=== PATIENT | female | born 1960 | race Two or more races ===

== ENCOUNTER → 2024-05-02 | Outpatient (CLI) | payer OTHER, SELFPAY ==
--- NOTE | 2024-05-02 | XR_ITS ---
Examination: PA lateral chest 2 views TECHNIQUE: Upright PA lateral chest 2 views Exam date and time: May 02, 2024 1229 hours INDICATIONS: Coughing shortness of breath beginning 3 weeks ago FINDINGS: Mild prominence left ventricle No pneumonia or pulmonary edema Moderate osteopenia IMPRESSION: No pneumonia identified
[2024-05-02 13:55] LABS: D-Dimer 1090 ng/mL (<600)
[2024-05-02 14:01] LABS: Glucose Estimated Average 137 mg/dL (80-131); Hemoglobin A1C 6.4 % Hgb (4.8-6.0)
[2024-05-02 14:06] LABS: Alanine Aminotransferase 10 U/L (10-49); Albumin, Serum 4.9 gm/dL (3.4-4.8); Albumin/Globulin Ratio 2.2 (1.2-2.2); Alkaline Phosphatase 34 U/L (46-116); Anion Gap 8 (7-16); Aspartate Amino Transferase 15 U/L (0-34); BUN/Creatinine Ratio 26 Ratio (12-20); Bilirubin,Total 0.3 mg/dL (0.3-1.2); Blood Urea Nitrogen 18 mg/dL (9-23); Calcium 9.9 mg/dL (8.3-10.6); Calcium (Corrected) 9.9 mg/dL (8.5-10.1); Cardiac Risk Estimate 2.6 RATIO (3.7-5.6); Chloride 101 mMol/L (98-107); Cholesterol 218 mg/dL (132-200); Creatinine (Component) 0.7 mg/dL (0.6-1.3); Globulin 2.2 gm/dL (2.3-3.5); Glucose 201 mg/dL (74-106); HDL Cholesterol 83 mg/dL (40-60); LDL Cholesterol,Calculated 125 mg/dL (0-130); Osmolality,Calculated 285 (275-295); Sodium 139 mMol/L (136-145); Thyroid Stimulating Hormone 2.11 uIU/mL (0.55-4.78); Total Protein 7.1 gm/dL (5.7-8.2); Triglycerides 50 mg/dL (30-150); Troponin I < 0.002 ng/mL (0.0-0.045); eGFR > 60 See Note
[2024-05-02 14:12] LABS: B-Type Natriuretic Peptide 20 pg/mL (0-100)
[2024-05-02 14:16] LABS: Creatinine MALB Rnd Ur 42 mg/dL (30-125); Microalbumin, Random Urine < 3 mg/L (0-300)
== END | disposition home or self-care (01) ==
LOC: CDIM 12:00 → COPL 12:42
PROVIDERS: PCP Specialist; Referring Provider Specialist; Visit Provider Radiology Diagnostic Radiology
DX: R06.00 Dyspnea, unspecified (principal); E11.69 Type 2 diabetes mellitus with other specified complication; I10 Essential (primary) hypertension
CPT/HCPCS: 36415; 71046; 80053; 80061; 82043; 82570; 83036; 83880; 84443; 84484; 85379

== ENCOUNTER → 2024-05-11 | Outpatient (CLI) | payer OTHER, SELFPAY ==
--- NOTE | 2024-05-11 16:04 | XR_ITS ---
Examination: CTA chest with intravenous contrast 2-D reconstructions 3-D reconstructions, vascular Date and time of exam: May 11, 2024 1646 hours INDICATIONS: Shortness breath chest pain this week with elevated d-dimer on laboratory examination CTDI: vol (mGy) 10.2 DLP: (mGycm) 211 Technique: Multiple axial sections of the thorax have been obtained. 3 mm slice thickness, from below the hemidiaphragms to above the apices of the lungs. Mediastinal and lung density settings have been obtained. 2-D sagittal and coronal reconstructions. 3-D angiographic renderings, 3-D volume renderings, 3D post processing, vascular maximum intensity projections obtained. Contrast administered is 85 cc [id number]. Intravenous Low dose protocols were performed. One or more of the following dose reduction techniques were used; automated exposure control, adjustment of the mA and/or KV according to patient size, use of iterative reconstruction technique. Findings: AP dimension ascending thoracic aorta 3.5 cm No filling defects in the pulmonary arterial branches No mediastinal lymphadenopathy No pneumonia or pulmonary edema or pleural disease No visualized liver or splenic lesion No gallstones No pancreatic or adrenal mass No hydronephrosis IMPRESSION: Negative for thoracic aortic aneurysm and dissection Negative for pulmonary artery emboli No pulmonary edema pneumonia or pleural disease
== END | disposition home or self-care (01) ==
LOC: SCAT 15:39
PROVIDERS: PCP Specialist; Referring Provider Specialist; Visit Provider Specialist
DX: R79.1 Abnormal coagulation profile (principal); R06.02 Shortness of breath
CPT/HCPCS: 71275; A4649; Q9967

== ENCOUNTER → 2024-05-31 | Outpatient (CLI) | payer OTHER, SELFPAY ==
--- NOTE | 2024-05-31 13:57 | XR_ITS ---
Examination: Knee, right , 3 views Technique: Knee AP, lateral, oblique 3 views Date and time of exam: May 31, 2024 1415 hours INDICATIONS: Right knee pain beginning one month ago FINDINGS: Moderate osteopenia Mild tricompartment osteoarthritis. No fracture or dislocation. Small knee effusion IMPRESSION: Mild tricompartment osteoarthritis
--- NOTE | 2024-05-31 13:57 | XR_ITS ---
Exam: elbow bilateral, 6 views Technique: Elbow AP, oblique each knee total 6 views Exam date and time: May 31, 2024 1415 hours INDICATIONS: Bilateral elbow pain beginning 2 weeks ago. FINDINGS: No fracture or dislocation either elbow Minor ossification left medial humeral condyle No fracture or dislocation No elbow effusions IMPRESSION: No fracture or dislocation involving either elbow No significant arthritic change
--- NOTE | 2024-05-31 13:57 | XR_ITS ---
Examination: Bilateral knees, standing AP single view Technique: Standing AP bilateral knees, standing single view Exam date and time: May 31, 2024 1415 hours INDICATIONS: Bilateral knee pain worse involving the right knee beginning 2 months ago. FINDINGS: Moderate osteopenia. Mild narrowing medial joint spaces. No fracture or dislocation IMPRESSION: Mild narrowing medial joint space
== END | disposition home or self-care (01) ==
PROVIDERS: PCP Specialist; Referring Provider Specialist; Visit Provider Specialist
DX: M25.521 Pain in right elbow (principal); M25.522 Pain in left elbow; M17.11 Unilateral primary osteoarthritis, right knee; M25.862 Other specified joint disorders, left knee; M25.861 Other specified joint disorders, right knee
CPT/HCPCS: 73080; 73560; 73562; 73564; 73565

== ENCOUNTER → 2024-07-06 | Outpatient (CLI) | payer OTHER, SELFPAY ==
--- NOTE | 2024-07-06 10:39 | XR_ITS ---
Examination: Abdomen sonogram, complete Date and time of exam: July 06, 2024 1109 hours INDICATIONS: Nausea vomiting abdominal pain one week. Technique: Multiple real-time grayscale transabdominal sonographic images of the abdomen have been obtained. Findings: Normal gallbladder. Normal common bile duct 0.2 cm Pancreatic head 2.3 cm Aorta not enlarged Liver 12.5 cm fatty infiltration Normal hepatopedal portal venous flow Patent IVC Right kidney 11.4 cm cortex 1.5 cm Left kidney 11.3 cm cortex 1.6 cm Spleen 11.4 cm IMPRESSION: Normal gallbladder Fatty liver
--- NOTE | 2024-07-06 10:39 | XR_ITS ---
Examination: Pelvic ultrasound, transabdominal, complete Technique: Transabdominal ultrasound of the pelvis performed using grayscale imaging Date and time of exam: July 06, 2024 1123 hours INDICATIONS: Nausea vomiting pelvic pain beginning one week ago FINDINGS: Absent uterus, absent ovaries No free fluid in the pelvis no pelvic mass IMPRESSION: Negative for pelvic mass
== END | disposition home or self-care (01) ==
LOC: CDIM 10:33
PROVIDERS: PCP Specialist; Referring Provider Specialist; Visit Provider Specialist
DX: K76.0 Fatty (change of) liver, not elsewhere classified (principal)
CPT/HCPCS: 76700; 76856

== ENCOUNTER → 2024-07-31 | Outpatient (CLI) | payer OTHER, SELFPAY ==
[2024-07-31 11:35] LABS: Basophils # (Auto) 0.1 Thou/mm3 (0.0-0.2); Basophils % (Auto) 1 % (0-2.5); Eosinophils # (Auto) 0.4 Thou/mm3 (0.0-0.5); Eosinophils % (Auto) 4 % (0-10); Hematocrit 35.1 % (36.0-46.0); Hemoglobin 11.6 g/dL (12.0-16.0); Immature Granulocytes % (Auto) 0 % (0-0); Immature Granulocytes Auto 0.03 Thou/mm3 (0.00-0.00); Lymphocytes # (Auto) 3.2 Thou/mm3 (1.0-4.8); Lymphocytes % (Auto) 40 % (10-50); Mean Corpuscular Volume 97 fL (80-100); Monocytes # (Auto) 0.6 Thou/mm3 (0.0-0.8); Monocytes % (Auto) 8 % (0-12); Neutrophils # (Auto) 3.9 Thou/mm3 (1.8-7.7); Neutrophils % (Auto) 47 % (37-80); Nucleated Red Blood Cell % 0 /100 WBC (0); Platelet Count 252 Thou/mm3 (140-440); Red Blood Count 3.62 Miln/mm3 (4.00-5.20); White Blood Count 8.1 Thou/mm3 (3.6-11.0)
[2024-07-31 11:45] LABS: Glucose Estimated Average 140 mg/dL (80-131); Hemoglobin A1C 6.5 % Hgb (4.8-6.0)
[2024-07-31 11:51] LABS: Creatinine MALB Rnd Ur 178 mg/dL (30-125); Microalbumin Creat Ratio 6 mg/gCrea (<30); Microalbumin, Random Urine 10 mg/L (0-300)
[2024-07-31 11:53] LABS: Alanine Aminotransferase 12 U/L (10-49); Albumin, Serum 4.2 gm/dL (3.4-4.8); Albumin/Globulin Ratio 2.1 (1.2-2.2); Alkaline Phosphatase 29 U/L (46-116); Anion Gap 6 (7-16); Aspartate Amino Transferase 14 U/L (0-34); BUN/Creatinine Ratio 27 Ratio (12-20); Bilirubin,Total 0.5 mg/dL (0.3-1.2); Blood Urea Nitrogen 19 mg/dL (9-23); Carbon Dioxide 30.7 mMol/L (20.0-31.0); Cardiac Risk Estimate 2.5 RATIO (3.7-5.6); Chloride 107 mMol/L (98-107); Cholesterol 198 mg/dL (132-200); Creatinine (Component) 0.7 mg/dL (0.6-1.3); Glucose 104 mg/dL (74-106); HDL Cholesterol 80 mg/dL (40-60); LDL Cholesterol,Calculated 107 mg/dL (0-130); Osmolality,Calculated 289 (275-295); Potassium 3.7 mMol/L (3.4-5.1); Sodium 144 mMol/L (136-145); Total Protein 6.2 gm/dL (5.7-8.2); Triglycerides 54 mg/dL (30-150); eGFR > 60 See Note
[2024-07-31 12:08] LABS: Urea Breath Test Negative (Negative)
== END | disposition home or self-care (01) ==
LOC: COPL 09:53
PROVIDERS: PCP Specialist; Referring Provider Specialist; Visit Provider Specialist
DX: E11.65 Type 2 diabetes mellitus with hyperglycemia (principal); E78.2 Mixed hyperlipidemia; K20.90 Esophagitis, unspecified without bleeding
CPT/HCPCS: 36415; 80053; 80061; 82043; 82570; 83013; 83014; 83036; 85025

== ENCOUNTER → 2024-08-16 | Outpatient (CLI) | payer OTHER, SELFPAY ==
[2024-08-16 14:22] LABS: Basophils # (Auto) 0.1 Thou/mm3 (0.0-0.2); Basophils % (Auto) 1 % (0-2.5); Eosinophils # (Auto) 0.3 Thou/mm3 (0.0-0.5); Eosinophils % (Auto) 4 % (0-10); Hematocrit 33.6 % (36.0-46.0); Hemoglobin 11.3 g/dL (12.0-16.0); Immature Granulocytes % (Auto) 1 % (0-0); Immature Granulocytes Auto 0.07 Thou/mm3 (0.00-0.00); Lymphocytes % (Auto) 37 % (10-50); Mean Corpuscular HGB Conc 33.6 g/dl (31.0-37.0); Mean Corpuscular Hemoglobin 32.2 pg (25.0-35.0); Mean Corpuscular Volume 96 fL (80-100); Monocytes # (Auto) 0.6 Thou/mm3 (0.0-0.8); Monocytes % (Auto) 7 % (0-12); Neutrophils # (Auto) 4.2 Thou/mm3 (1.8-7.7); Neutrophils % (Auto) 51 % (37-80); Nucleated Red Blood Cell % 0 /100 WBC (0); Platelet Count 248 Thou/mm3 (140-440); Red Blood Count 3.51 Miln/mm3 (4.00-5.20); White Blood Count 8.2 Thou/mm3 (3.6-11.0)
[2024-08-16 14:33] LABS: Alanine Aminotransferase 25 U/L (10-49); Albumin, Serum 4.2 gm/dL (3.4-4.8); Albumin/Globulin Ratio 2.2 (1.2-2.2); Alkaline Phosphatase 31 U/L (46-116); Anion Gap 9 (7-16); Aspartate Amino Transferase 31 U/L (0-34); BUN/Creatinine Ratio 29 Ratio (12-20); Bilirubin,Total 0.3 mg/dL (0.3-1.2); Blood Urea Nitrogen 20 mg/dL (9-23); Calcium 9.1 mg/dL (8.3-10.6); Calcium (Corrected) 9.1 mg/dL (8.5-10.1); Carbon Dioxide 30.4 mMol/L (20.0-31.0); Chloride 106 mMol/L (98-107); Creatinine (Component) 0.7 mg/dL (0.6-1.3); Globulin 1.9 gm/dL (2.3-3.5); Glucose 169 mg/dL (74-106); Osmolality,Calculated 295 (275-295); Potassium 3.8 mMol/L (3.4-5.1); Sodium 145 mMol/L (136-145); Total Protein 6.1 gm/dL (5.7-8.2); eGFR > 60 See Note
== END | disposition home or self-care (01) ==
LOC: COPL 13:29
PROVIDERS: PCP Specialist; Referring Provider Internal Medicine; Visit Provider Internal Medicine
DX: E11.9 Type 2 diabetes mellitus without complications (principal); G47.00 Insomnia, unspecified; J45.909 Unspecified asthma, uncomplicated; K50.90 Crohn's disease, unspecified, without complications; M79.7 Fibromyalgia; M81.0 Age-related osteoporosis without current pathological fracture; M85.9 Disorder of bone density and structure, unspecified; R12 Heartburn; Z13.820 Encounter for screening for osteoporosis; Z78.0 Asymptomatic menopausal state; Z79.83 Long term (current) use of bisphosphonates
CPT/HCPCS: 36415; 80053; 85025

== ENCOUNTER → 2024-09-07 | Outpatient (CLI) | payer OTHER, SELFPAY ==
--- NOTE | 2024-09-07 14:49 | XR_ITS ---
Exam: MRI knee without contrast, right Date and time of exam: September 07, 2024 1532 hours INDICATIONS: Right knee pain beginning 4 months ago severe the last 2 months Technique: Multiple axial, coronal, and sagittal sections on the knee have been obtained. T2-Weighted sagittal, fat-suppressed images, TR 3,500, TE 62, T2 weighted coronal fat-saturated images, TR 3,500, TE 62 Proton density sagittal sections, TR 1800, TE 31. T-1 weighted coronal images, TR 524, TE 13.0 Findings: Medial meniscus anterior horn intact. Medial meniscus, body large vertical tear outer one half body of the medial meniscus. Posterior horn medial meniscus complex tears including large horizontal tears communicating intermargin. Lateral meniscus anterior horn is intact Lateral meniscus, body is intact Posterior horn lateral meniscus is intact Anterior cruciate ligament appears intact. Posterior cruciate ligament appears intact. Knee effusion is small. Quadriceps and patellar tendons appear intact. There is no evidence of tendinosis. Inflammatory change or fracture of Hoffa's fat pad is not seen. Medial patellar facet demonstrates moderate thinning. Lateral patellar facet cartilage demonstrates moderate thinning. Trochlear cartilage demonstrates moderate thinning. Marrow signal adequate. Medial collateral ligament appears intact. No meniscocapsular separation is seen. Illiotibial band and fibular collateral ligament are intact. Biceps femoris tendons appear intact. Medial femoral condylar articular cartilage demonstrates moderate thinning. Lateral femoral condylar articular cartilage demonstratesmild thinning. Tibial plateau cartilage demonstrates moderate medial thinning. Impression: Large vertical tear body the medial meniscus Large horizontal tears posterior horn medial meniscus
== END | disposition home or self-care (01) ==
PROVIDERS: PCP Specialist; Referring Provider Orthopaedic Surgery; Visit Provider Orthopaedic Surgery
DX: S83.231A Complex tear of medial meniscus, current injury, right knee, initial encounter (principal); X58.XXXA Exposure to other specified factors, initial encounter
CPT/HCPCS: 73721

== ENCOUNTER → 2024-10-18 | Outpatient (CLI) | payer OTHER, SELFPAY ==
--- NOTE | 2024-10-18 16:01 | XR_ITS ---
Examination: Foot, left, 3 views Technique: AP, oblique, lateral views foot, 3 views Date and time of exam: October 18, 2024 1608 hours INDICATIONS: Injury to the foot one week ago, foot pain FINDINGS: Acute fracture midportion proximal phalanx fifth digit, 1 mm offset at the fracture site No foreign body Prominent osteopenia IMPRESSION: Acute fracture proximal phalanx fifth digit
[2024-10-18 17:44] LABS: Creatinine MALB Rnd Ur 119 mg/dL (30-125); Microalbumin Creat Ratio 6 mg/gCrea (<30); Microalbumin, Random Urine 7 mg/L (0-300)
[2024-10-18 17:45] LABS: Glucose Estimated Average 169 mg/dL (80-131); Hemoglobin A1C 7.5 % Hgb (4.8-6.0)
[2024-10-18 17:47] LABS: Alanine Aminotransferase 19 U/L (10-49); Albumin, Serum 4.3 gm/dL (3.4-4.8); Albumin/Globulin Ratio 1.9 (1.2-2.2); Alkaline Phosphatase 31 U/L (46-116); Anion Gap 9 (7-16); Aspartate Amino Transferase 19 U/L (0-34); BUN/Creatinine Ratio 20 Ratio (12-20); Bilirubin,Total 0.3 mg/dL (0.3-1.2); Blood Urea Nitrogen 16 mg/dL (9-23); Calcium 9.0 mg/dL (8.3-10.6); Calcium (Corrected) 9.0 mg/dL (8.5-10.1); Carbon Dioxide 29.3 mMol/L (20.0-31.0); Cardiac Risk Estimate 2.5 RATIO (3.7-5.6); Chloride 104 mMol/L (98-107); Cholesterol 216 mg/dL (132-200); Creatinine (Component) 0.8 mg/dL (0.6-1.3); Globulin 2.3 gm/dL (2.3-3.5); Glucose 148 mg/dL (74-106); HDL Cholesterol 88 mg/dL (40-60); LDL Cholesterol,Calculated 117 mg/dL (0-130); Osmolality,Calculated 287 (275-295); Potassium 3.8 mMol/L (3.4-5.1); Sodium 142 mMol/L (136-145); Total Protein 6.6 gm/dL (5.7-8.2); Triglycerides 55 mg/dL (30-150); eGFR > 60 See Note
== END | disposition home or self-care (01) ==
LOC: CDIM 15:55 → COPL 16:16
PROVIDERS: PCP Specialist; Referring Provider Specialist; Visit Provider Radiology Diagnostic Radiology
DX: S92.512A Displaced fracture of proximal phalanx of left lesser toe(s), initial encounter for closed fracture (principal); X58.XXXA Exposure to other specified factors, initial encounter; E11.65 Type 2 diabetes mellitus with hyperglycemia; E78.2 Mixed hyperlipidemia
CPT/HCPCS: 36415; 73630; 80053; 80061; 82043; 82570; 83036

== ENCOUNTER → 2025-01-01 | Outpatient (CLI) | payer OTHER, SELFPAY ==
--- NOTE | 2025-01-01 09:00 | XR_ITS ---
Examination: Screening digital mammography, bilateral Computer aided detection 3-D breast Tomosynthesis, bilateral Date and time of exam: January 01, 2025 0859 hours Compared to mammograms dating to September 18, 2015. Indication: Screening Technique: Nonmagnified MLO, CC views of the breasts to been obtained, reconstructed from 3-D Tomosynthesis images. R2 computer aided detection program utilized for evaluation of suspicious masses and/or abnormal calcifications. 3-D Tomosynthesis images obtained. Findings: The breasts are heterogeneously dense, which may obscure small masses Benign calcifications. No interval suspicious masses Impression: BI-RADS category II: Benign Findings. Recommend 1 year follow-up mammogram.
== END | disposition home or self-care (01) ==
LOC: CDIM 08:48
PROVIDERS: Referring Provider Specialist; Visit Provider Specialist
DX: Z12.31 Encounter for screening mammogram for malignant neoplasm of breast (principal); R92.323 Mammographic fibroglandular density, bilateral breasts; R92.1 Mammographic calcification found on diagnostic imaging of breast
CPT/HCPCS: 77063; 77067

== ENCOUNTER → 2025-01-08 | Outpatient (CLI) | payer OTHER, SELFPAY ==
[2025-01-08 14:00] LABS: Basophils # (Auto) 0.1 Thou/mm3 (0.0-0.2); Basophils % (Auto) 1 % (0-2.5); Eosinophils # (Auto) 0.4 Thou/mm3 (0.0-0.5); Eosinophils % (Auto) 6 % (0-10); Hematocrit 37.3 % (36.0-46.0); Hemoglobin 12.4 g/dL (12.0-16.0); Immature Granulocytes Auto 0.03 Thou/mm3 (0.00-0.00); Lymphocytes # (Auto) 2.8 Thou/mm3 (1.0-4.8); Lymphocytes % (Auto) 37 % (10-50); Mean Corpuscular HGB Conc 33.2 g/dl (31.0-37.0); Mean Corpuscular Hemoglobin 31.8 pg (25.0-35.0); Mean Corpuscular Volume 96 fL (80-100); Monocytes # (Auto) 0.5 Thou/mm3 (0.0-0.8); Monocytes % (Auto) 7 % (0-12); Neutrophils # (Auto) 3.7 Thou/mm3 (1.8-7.7); Neutrophils % (Auto) 49 % (37-80); Nucleated Red Blood Cell # 0.00 Thou/mm3 (0.00-0.00); Nucleated Red Blood Cell % 0 /100 WBC (0); Platelet Count 283 Thou/mm3 (140-440); RDW Standard Deviation 43.4 fL (36.4-46.3); Red Blood Count 3.90 Miln/mm3 (4.00-5.20); White Blood Count 7.5 Thou/mm3 (3.6-11.0)
[2025-01-08 14:16] LABS: Albumin, Serum 4.7 gm/dL (3.4-4.8); Anion Gap 8 (7-16); BUN/Creatinine Ratio 19 Ratio (12-20); Blood Urea Nitrogen 13 mg/dL (9-23); Calcium 10.2 mg/dL (8.3-10.6); Calcium (Corrected) 10.2 mg/dL (8.5-10.1); Carbon Dioxide 32.8 mMol/L (20.0-31.0); Chloride 103 mMol/L (98-107); Creatinine (Component) 0.7 mg/dL (0.6-1.3); Glucose 156 mg/dL (74-106); Osmolality,Calculated 289 (275-295); Phosphorous 4.8 mg/dL (2.4-5.1); Potassium 4.1 mMol/L (3.4-5.1); Sodium 144 mMol/L (136-145); eGFR > 60 See Note
== END | disposition home or self-care (01) ==
LOC: COPL 12:36
PROVIDERS: PCP Specialist; Referring Provider Orthopaedic Surgery; Visit Provider Orthopaedic Surgery
DX: Z01.818 Encounter for other preprocedural examination (principal); Z01.812 Encounter for preprocedural laboratory examination; E13.9 Other specified diabetes mellitus without complications; I10 Essential (primary) hypertension
CPT/HCPCS: 36415; 80069; 85025

== ENCOUNTER → 2025-01-11 | Outpatient (CLI) | payer OTHER, SELFPAY ==
[2025-01-11 14:19] LABS: Collection Type, Urine Clean Catch
[2025-01-11 14:42] LABS: Bilirubin,Urine Negative (Negative); Blood,Urine Negative (Negative); Clarity,Urine Clear (Clear/Hazy); Color,Urine Yellow (Lt Yel-Yel); Culture Indicated,Urine Not Indicated; Glucose, Urine Negative (Negative); Ketones,Urine Negative (Negative); Leukocyte Esterase,Urine Positive (Negative); Nitrite,Urine Negative (Negative); PH,Urine 7.0 (5.0-7.0); Protein,Urine Trace (Neg - Trace); RBC,Urine 43 /hpf (0-3); Specific Gravity,Urine 1.026 (1.001-1.035); Squamous Epithelial Cell,Urine 1 /hpf (0-5); Urobilinogen,Urine Negative mg/dL (0.0-1.0); WBC,Urine 4 /hpf (0-5)
[2025-01-11 14:50] LABS: INR 1.0 (0.9-1.3); Partial Thromboplastin Time 25.7 Seconds (22.0-36.0); Prothrombin Time 11.0 Seconds (9.0-12.2)
[2025-01-11 14:52] LABS: Glucose Estimated Average 151 mg/dL (80-131); Hemoglobin A1C 6.9 % Hgb (4.8-6.0)
[2025-01-11 14:57] LABS: Creatinine MALB Rnd Ur 159 mg/dL (30-125); Microalbumin Creat Ratio 9 mg/gCrea (<30); Microalbumin, Random Urine 14 mg/L (0-300)
[2025-01-11 15:06] LABS: Alanine Aminotransferase 9 U/L (10-49); Albumin, Serum 4.5 gm/dL (3.4-4.8); Albumin/Globulin Ratio 2.1 (1.2-2.2); Alkaline Phosphatase 29 U/L (46-116); Anion Gap 7 (7-16); Aspartate Amino Transferase 17 U/L (0-34); BUN/Creatinine Ratio 18 Ratio (12-20); Bilirubin,Total 0.2 mg/dL (0.3-1.2); Blood Urea Nitrogen 14 mg/dL (9-23); Calcium 9.8 mg/dL (8.3-10.6); Calcium (Corrected) 9.8 mg/dL (8.5-10.1); Carbon Dioxide 29.7 mMol/L (20.0-31.0); Cardiac Risk Estimate 1.9 RATIO (3.7-5.6); Chloride 106 mMol/L (98-107); Cholesterol 140 mg/dL (132-200); Creatinine (Component) 0.8 mg/dL (0.6-1.3); Globulin 2.1 gm/dL (2.3-3.5); Glucose 120 mg/dL (74-106); HDL Cholesterol 75 mg/dL (40-60); LDL Cholesterol,Calculated 48 mg/dL (0-130); Osmolality,Calculated 286 (275-295); Potassium 3.9 mMol/L (3.4-5.1); Sodium 143 mMol/L (136-145); Total Protein 6.6 gm/dL (5.7-8.2); Triglycerides 84 mg/dL (30-150); eGFR > 60 See Note
== END | disposition home or self-care (01) ==
LOC: COPL 13:43
PROVIDERS: PCP Specialist; Referring Provider Specialist; Visit Provider Specialist
DX: Z01.812 Encounter for preprocedural laboratory examination (principal); E11.69 Type 2 diabetes mellitus with other specified complication
CPT/HCPCS: 36415; 80053; 80061; 81001; 82043; 82570; 83036; 85610; 85730

== ENCOUNTER → 2025-02-12 | Outpatient (CLI) | payer OTHER, SELFPAY ==
--- NOTE | 2025-02-12 14:16 | XR_ITS ---
EXAMINATION: PA lateral chest 2 views TECHNIQUE: Upright PA lateral chest 2 views Date and time: February 12, 2025, 1446 hours, comparison May 02, 2024 INDICATIONS: Coughing beginning 2 weeks ago FINDINGS: Mild prominence left ventricle Ectatic thoracic aorta. No pneumonia or pulmonary edema. Prominent osteopenia IMPRESSION: No pneumonia or pulmonary edema
== END | disposition home or self-care (01) ==
PROVIDERS: PCP Specialist; Referring Provider Specialist; Visit Provider Specialist
DX: R05.9 Cough, unspecified (principal)
CPT/HCPCS: 71046

== ENCOUNTER → 2025-03-01 | Outpatient (CLI) | payer OTHER, MEDICAID, SELFPAY ==
[2025-03-01 16:14] LABS: Basophils # (Auto) 0.0 Thou/mm3 (0.0-0.2); Basophils % (Auto) 1 % (0-2.5); Eosinophils # (Auto) 0.3 Thou/mm3 (0.0-0.5); Eosinophils % (Auto) 5 % (0-10); Hematocrit 38.0 % (36.0-46.0); Hemoglobin 12.7 g/dL (12.0-16.0); Immature Granulocytes Auto 0.03 Thou/mm3 (0.00-0.00); Lymphocytes # (Auto) 2.3 Thou/mm3 (1.0-4.8); Lymphocytes % (Auto) 37 % (10-50); Mean Corpuscular HGB Conc 33.4 g/dl (31.0-37.0); Mean Corpuscular Hemoglobin 31.8 pg (25.0-35.0); Mean Corpuscular Volume 95 fL (80-100); Monocytes # (Auto) 0.5 Thou/mm3 (0.0-0.8); Monocytes % (Auto) 8 % (0-12); Neutrophils # (Auto) 3.1 Thou/mm3 (1.8-7.7); Neutrophils % (Auto) 49 % (37-80); Nucleated Red Blood Cell # 0.00 Thou/mm3 (0.00-0.00); Nucleated Red Blood Cell % 0 /100 WBC (0); Platelet Count 274 Thou/mm3 (140-440); RDW Standard Deviation 45.1 fL (36.4-46.3); Red Blood Count 3.99 Miln/mm3 (4.00-5.20); White Blood Count 6.2 Thou/mm3 (3.6-11.0)
[2025-03-01 16:27] LABS: Alanine Aminotransferase 13 U/L (10-49); Albumin, Serum 4.6 gm/dL (3.4-4.8); Albumin/Globulin Ratio 2.4 (1.2-2.2); Alkaline Phosphatase 30 U/L (46-116); Anion Gap 9 (7-16); Aspartate Amino Transferase 24 U/L (0-34); BUN/Creatinine Ratio 14 Ratio (12-20); Bilirubin,Total 0.2 mg/dL (0.3-1.2); Blood Urea Nitrogen 10 mg/dL (9-23); Calcium 9.3 mg/dL (8.3-10.6); Calcium (Corrected) 9.3 mg/dL (8.5-10.1); Carbon Dioxide 30.7 mMol/L (20.0-31.0); Chloride 104 mMol/L (98-107); Creatinine (Component) 0.7 mg/dL (0.6-1.3); Globulin 1.9 gm/dL (2.3-3.5); Glucose 197 mg/dL (74-106); Osmolality,Calculated 290 (275-295); Potassium 4.0 mMol/L (3.4-5.1); Sodium 144 mMol/L (136-145); Total Protein 6.5 gm/dL (5.7-8.2); eGFR > 60 See Note
[2025-03-01 16:28] LABS: Vitamin D 25 Hydroxy Total 37.2 ng/mL (7.3-40.2)
== END | disposition home or self-care (01) ==
PROVIDERS: PCP Specialist; Referring Provider Internal Medicine; Visit Provider Internal Medicine
DX: E11.9 Type 2 diabetes mellitus without complications (principal); G47.00 Insomnia, unspecified; J45.909 Unspecified asthma, uncomplicated; K50.90 Crohn's disease, unspecified, without complications; M79.7 Fibromyalgia; M81.0 Age-related osteoporosis without current pathological fracture; M85.9 Disorder of bone density and structure, unspecified; R12 Heartburn; Z13.820 Encounter for screening for osteoporosis; Z78.0 Asymptomatic menopausal state; Z79.83 Long term (current) use of bisphosphonates; Z79.899 Other long term (current) drug therapy
CPT/HCPCS: 36415; 80053; 82306; 85025